=== PATIENT | male | born 2000 | race Caucasian/White ===

== ENCOUNTER 2022-06-14 07:35 | Emergency (ER) | payer OTHER, SELFPAY ==
[~2022-06-14] VITALS: Ht 182.9 cm; Wt 85.2 kg
[2022-06-14] MEDS ORDERED: NAPROXEN 250 MG TAB PO ONE (08:05)
[2022-06-14] MEDS ORDERED: diazePAM 5MG TABLET PO ONE (09:35)
[2022-06-14] MEDS ORDERED: LIDO5DIS41 TOP (09:37)
[2022-06-14] MEDS ORDERED: VALI5TAB PO (09:37)
[2022-06-14 09:45] VITALS: BP 134/76
== END 2022-06-14 09:46 | disposition home or self-care (01) ==
LOC: M ED 07:35
DX: S13.4XXA Sprain of ligaments of cervical spine, initial encounter (principal); V47.1XXA Car passenger injured in collision with fixed or stationary object in nontraffic accident, initial encounter; Y92.89 Other specified places as the place of occurrence of the external cause; Y93.89 Activity, other specified; Y99.8 Other external cause status